=== PATIENT | female | born 1995 | race Caucasian/White ===

== ENCOUNTER 2025-01-26 13:33 | Emergency (ER) | payer OTHER ==
[~2025-01-26] VITALS: Ht 157.5 cm; Wt 74.8 kg
[~2025-01-26 13:33] MED LIST: NAPROXEN250 MG PO
[2025-01-26 14:00] VITALS: PULSE 84; RESP 18; TEMP 98.2
[2025-01-26] MEDS ORDERED: ACETAMINOPHEN 325 MG TAB PO ONE (14:45)
[2025-01-26] MEDS ORDERED: CEPHALEXIN 500 MG CAP PO SCH (14:45)
[2025-01-26] MEDS ORDERED: KETOROLAC TROMETHAMINE 60 MG/2 ML VIAL IM ONE (14:45)
[2025-01-26] MEDS ORDERED: KETOROLAC TROMETHAMINE 30 MG/ML VIAL ONE (14:55)
[2025-01-26] MEDS ORDERED: CEPHALEXIN MONOHYDRATE 250 MG CAP ONE (14:55)
[2025-01-26] MEDS ORDERED: CEFPODOXIME PR200 MG PO (15:22)
[2025-01-26 15:55] VITALS: BP 118/75; PULSE 70; RESP 16; TEMP 97.9; O2SAT 100
== END 2025-01-26 15:15 | disposition home or self-care (01) ==
LOC: FSED 14:33
DX: N10 Acute pyelonephritis (principal)
CPT/HCPCS: 87086; 87186; 99282; J1885